=== PATIENT | male | born 1975 | race Caucasian/White ===

== ENCOUNTER → 2017-07-05 | Outpatient (CLI) | payer BC ==
--- NOTE | 2017-07-06 09:58 | CT ---
EXAMINATION TYPE: CT abdomen pelvis wo/w con DATE OF EXAM: 07/05/2017 COMPARISON: NONE INDICATION: Microscopic hematuria without pain. DLP: 3132.8 mGycm, Automated exposure control for dose reduction was used. CONTRAST: 100 mL of Omnipaque 300. Study performed with Oral Contrast TECHNIQUE: Axial images were obtained from above the diaphragm to the pubic rami in the axial plane a t 5 mm thick sections. Reconstructed images are reviewed on the computer in the coronal plane. FINDINGS: Limited CT sections are obtained the lung bases. The lung bases are clear. CT ABDOMEN: Liver: Normal Spleen: Normal Pancreas: Normal Adrenal glands: The adrenal glands are normal. Gallbladder: Normal Kidneys: Left kidney is atrophic. Scattered punctate calcifications are within the left kidney. There is a larger calcification at the inferior pole left kidney measuring 0.5 cm. No hydronephrosis or hy droureter is evident. No ureteral stones are evident. No masses are evident. No hydronephrosis is pre sent. There is a 2.5 cm cyst on the posterior mid right kidney. This measures 28 Hounsfield units D elayed images were obtained through the kidneys. Aorta: Mild Vascular calcification is within the aorta. Inferior vena cava: Normal. CT PELVIS: Loops of bowel within the abdomen and pelvis are normal. There are loops of bowel which are incom pletely distended or lack oral contrast limiting their evaluation. Appendix: Normal as visualized. Urinary bladder: Normal. No bladder calcifications are evident. Genitourinary structures: Prostate is normal. Punctate calcification is within the mid prostate most likely prostate calcification, tiny urethral stone is not excluded. Series 6 image 92, series 3 image 153 Osseous structures: No suspicious lytic or sclerotic lesions. IMPRESSIONS: 1. Tiny urethral stone at the level of the prostate is not excluded. Prostate calcification is more probable within the differential. 2. Right renal cyst. Consider additional evaluation with ultrasound for this 28 Hounsfield unit cyst. 3. Atrophic left kidney
== END | disposition home or self-care (01) ==
LOC: RADCTMAIN 17:48
PROVIDERS: ATTEND Internal Medicine
DX: N28.1 Cyst of kidney, acquired (principal); N26.1 Atrophy of kidney (terminal)
CPT/HCPCS: 74178; Q9967

== ENCOUNTER → 2017-07-13 | Outpatient (CLI) | payer BC ==
--- NOTE | 2017-07-14 08:28 | US ---
EXAMINATION TYPE: US kidneys/renal and bladder DATE OF EXAM: 07/13/2017 COMPARISON: CT CLINICAL HISTORY: R93.8 Abnormal Finding on imaging. Abnormal CT EXAM MEASUREMENTS: Right Kidney: 14.5 x 6.2 x 7.5 cm Left Kidney: 6.2 x 4.2 x 3.4 cm Right Kidney: Anechoic, avascular upper pole lesion = 2.6 x 2.2 x 2.8 cm, No evidence of hydro Left Kidney: Atrophic as seen on CT with 8mm calcification Bladder: wnl Bilateral Jets seen: Only right jet visualized There is no evidence for hydronephrosis at this point in time. The urinary bladder is anechoic. Bi lateral ureteral jets are seen. IMPRESSION: 1. Right upper pole renal lesion appears sonographically as a simple renal cyst, benign. 2. Left renal atrophy and 8 mm nonobstructing calculus.
== END | disposition home or self-care (01) ==
LOC: RADUSWWP 16:10
PROVIDERS: ATTEND Internal Medicine
DX: N20.0 Calculus of kidney (principal); N28.89 Other specified disorders of kidney and ureter; N26.1 Atrophy of kidney (terminal)
CPT/HCPCS: 76770

== ENCOUNTER → 2019-08-16 | Outpatient (CLI) | payer BC ==
--- NOTE | 2019-08-16 11:34 | CONS ---
CONSULTATION DATE OF SERVICE: 08/16/2019. A 43-year-old gentleman has been evaluated in sleep center for possible obstructive sleep apnea-hypopnea syndrome. HISTORY OF PRESENT ILLNESS/SLEEP-WAKE EVALUATION: Patient's usual sleep schedule on working days from 10:30 to 11 p.m. until 5 a.m.; on weekend from about 10:30 p.m. until 7 to 8 a.m. Usually no problems with falling asleep, although he has TV in bedroom. He sleeps in different positions. He snores usually when he had a difficult day, wakes up once with nocturia. Sometimes he opens his mouth during the sleep. May feel dry mouth when wake up. During the day, may feel sleepiness. [place] Sleepiness Scale is 6. No history of hypnagogic hallucinations, sleep paralysis or cataplexy. PAST MEDICAL HISTORY: Positive for hypertension, hyperlipidemia, episodes of muscle pains. PAST SURGICAL HISTORY: None. MEDICATIONS: Pravastatin, hydrochlorothiazide, amlodipine, ibuprofen. SOCIAL HISTORY: Negative for smoking. Alcohol consumption. Quit using alcohol about 5 years ago. FAMILY HISTORY: Hypertension, hyperlipidemia, diabetes. PHYSICAL EXAMINATION: During physical exam, gentleman without distress. VITAL SIGNS: BP 124/79, HR about 100, RR 15. Height 5 feet and 7 inches. Weight 242, body mass index 37.9. Temperature 97.1. Oxygen saturation at room air 96%. HEENT: PERRLA, EOMI. Oropharynx extremely low position of soft palate. Mallampati 4. Some restriction of nasal breathing. NECK: Wide neck, 17 inches in circumference. LUNGS: Clear to percussion and to auscultation. Good air exchange. No wheezing or rhonchi. HEART: S1, S2 regular. No murmurs, gallops, or rubs. ABDOMEN: Obese. EXTREMITIES: No clubbing or cyanosis. AUDIOLOGY TECHNICIAN: Awake, alert, and oriented X3. Cranial nerves 2 to 7 intact. There is no fasciculation or atrophy. noted. No focal deficits observed. IMPRESSION: 1. Snoring, awakenings from sleep with dry mouth and nocturia, extremely low position of soft palate, Mallampati 4, wide neck, obstructive sleep apnea-hypopnea syndrome. 2. Obesity, body mass index 37.9. 3. Hypertension. 4. 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 5. Episodes of muscle pain. 6. 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 PLAN: 1. Polysomnography for evaluation of patient's breathing during sleep. 2. CPAP/BiPAP titration if sleep study confirms obstructive sleep apnea-hypopnea syndrome. 3. Preferable position during sleep on the side. 4. No driving if patient feels any sleepiness. 5. I will see patient for follow up visit to explain results of testing and following plan. Thank you very much for referring this patient for consultation. Sincerely, Abelardo Hummel MD, PhD, FAASM Diplomat of [place] Board [employer] Medical Specialties [place] Board of Internal Medicine Manager Of Security of [facility] [place] MMODL / IJN: [id number] /
== END | disposition home or self-care (01) ==
LOC: SLEEP 10:00
PROVIDERS: ATTEND Internal Medicine
DX: G47.33 Obstructive sleep apnea (adult) (pediatric) (principal); E66.9 Obesity, unspecified; I10 Essential (primary) hypertension; E78.5 Hyperlipidemia, unspecified; M79.10 Myalgia, unspecified site; R35.1 Nocturia; Z68.37 Body mass index [BMI] 37.0-37.9, adult; Z79.1 Long term (current) use of non-steroidal anti-inflammatories (NSAID); Z79.899 Other long term (current) drug therapy
CPT/HCPCS: 99211

== ENCOUNTER → 2020-01-18 | Outpatient (CLI) | payer BC ==
--- NOTE | 2020-01-19 04:18 | SFUN ---
SLEEP CENTER FOLLOW UP NOTE DATE OF SERVICE: 01/18/2020 This 44-year-old gentleman had been followed in Sleep Center for treatment of obstructive sleep apnea-hypopnea syndrome. Recently patient had home sleep apnea test which showed severe sleep apnea with apnea-hypopnea index 54.2, and oxygen desaturation to 80%. I discussed results of the sleep study with patient in details. Subsequently, he was started on treatment with CPAP. Today is his first visit after he started to use equipment. I checked CPAP unit. Range of the pressure 5 to16, average pressure 10.1. Usage 25 out of 30 nights for more than 4 hours with average usage 5.3 hours per night. Leak is 43 L/minute, which is slightly high, but apnea-hypopnea index is perfect 0.8. [place] Sleepiness Scale today is 4. MEDICATIONS: Pravastatin, hydrochlorothiazide, amlodipine, ibuprofen. PHYSICAL EXAMINATION: GENERAL: Patient in no distress. VITAL SIGNS: BP 117/64, HR 92, RR 16, weight 243, temperature 98.1, oxygen saturation at room air 97%. HEENT: PERRLA, EOMI. Oropharynx extremely low position of soft palate. Mallampati 4. NECK: Supple, no JVD. Thyroid is not palpable. LUNGS: Clear to percussion and to auscultation. Good air exchange. No wheezing or rhonchi. HEART: S1, S2 regular. No murmurs, gallops, or rubs. ABDOMEN: Obese. EXTREMITIES: No clubbing or cyanosis. AUTOMOTIVE PARTS PERSON: Awake, alert, and oriented X3. Cranial nerves 2 to 7 intact. There is no fasciculation or atrophy. noted. No focal deficits observed. IMPRESSION: 1. Severe obstructive sleep apnea-hypopnea syndrome; apnea-hypopnea index 54.2 with oxygen desaturation to 80% on control with Auto PAP. Patient demonstrated good compliance with treatment, benefitting from treatment, slightly high leak from the mask. 2. Obesity. 3. Hypertension. 4. 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 5. Episodes of muscle pain. 6. 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 PLAN: 1. Patient will continue to use PAP equipment every night for the whole night. 2. Sleep hygiene with regular time in bed for at least 7-1/2 to 8 hours. Precautions related to driving. No driving if feeling sleepiness. 3. I will maintain all necessary prescription for PAP supplies including mask, tube, filters. 4. Watching weight. 5. No driving if feeling sleepiness. 6. Follow-up visit in 6 months or earlier if patient has any problems. Thank you very much for allowing me to participate in management of your patient. Sincerely, Abelardo Hummel MD, PhD, FAASM Diplomat of [place] Board of Medical Specialties [place] Board of Internal Medicine Spa Consultant of [facility] [place] MMODL / CADEN: [id number] /
== END | disposition home or self-care (01) ==
LOC: SLEEP 16:39
PROVIDERS: ATTEND Internal Medicine
DX: G47.33 Obstructive sleep apnea (adult) (pediatric) (principal); E66.9 Obesity, unspecified; I10 Essential (primary) hypertension; E78.5 Hyperlipidemia, unspecified; Z99.89 Dependence on other enabling machines and devices

== ENCOUNTER → 2020-07-31 | Outpatient (CLI) | payer BC ==
--- NOTE | 2020-08-01 06:34 | SFUN ---
SLEEP CENTER FOLLOW UP NOTE DATE OF SERVICE: 07/31/2020 HISTORY OF PRESENT ILLNESS: A 44-year-old gentleman who has been followed in Sleep Center for treatment of obstructive sleep apnea-hypopnea syndrome. Patient continues to use equipment every night and according to him he sleeps well with that. He does not snore. [place] Sleepiness Scale is 4. I checked his CPAP unit. Range of the pressure 5-16, average pressure 9.8, usage for the last month 27/30 nights for more than 4 hours with average usage 5.5 hours. I checked usage for the last 6 months and it is 169/180 nights. Leak is quite high at 38 L/minute. Apnea-hypopnea index only 1.0, which is absolutely normal. The patient did not start to use his new mask since using CPAP for the last 6 months. MEDICATIONS: Hydrochlorothiazide 25 mg once a day, amlodipine 5 mg once a day. Pravastatin 10 mg once a day. PHYSICAL EXAMINATION: GENERAL: A pleasant patient without any distress. VITAL SIGNS: BP 123/84 , HR 99 , RR 12, height 5' 7 1/2", weight 252.6 pounds, temperature 98.3, oxygen saturation at room air 96%. HEENT: PERRLA, EOMI, evaluation of oropharynx showed tongue protrudes midline. Extremely low position of soft palate, Mallampati IV. NECK: Supple, no JVD. Thyroid is not palpable. LUNGS: Clear to percussion and to auscultation. Good air exchange. No wheezing or rhonchi. HEART: S1, S2 regular. No murmurs, gallops, or rubs. ABDOMEN: Soft and nontender. Bowel sounds are present. No organomegaly appreciated. Obese. EXTREMITIES: No clubbing or cyanosis. MINE SURVEYOR: Awake, alert, and oriented X3. Cranial nerves 2 to 7 intact. There is no fasciculation or atrophy. noted. No focal deficits observed. IMPRESSION: 1. Severe obstructive sleep apnea-hypopnea syndrome. Apnea-hypopnea index of 54.2, on full control with CPAP. The patient demonstrated good compliance with treatment benefitting from treatment. 2. Obesity. 3. Hypertension. 4. 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 5. Episodes of muscle pain. 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 PLAN: PLAN 1. Patient will continue to use PAP equipment every night for the whole night. 2. Sleep hygiene with regular time in bed for at least 7-1/2 to 8 hours. 3. Precautions related to driving. No driving if feeling sleepiness. 4. I will maintain all necessary prescription for PAP supplies including mask, tube, filters. 5. Watching weight. 6. No driving if feeling sleepiness. 7. Follow-up visit in 6 months or earlier if patient has any problems. The patient should start to use new mask, which he already received. Thank you very much for allowing me to participate in the management of your patient. Sincerely, Abelardo Hmumel MD, PhD, FAASM Diplomat of [place] Board of Medical Specialties [place] Board of Internal Medicine Aws Software Development Engineer of [facility] [place] MMODL / CADEN: [id number] /
== END | disposition home or self-care (01) ==
LOC: SLEEP 16:32
PROVIDERS: ATTEND Internal Medicine
DX: G47.33 Obstructive sleep apnea (adult) (pediatric) (principal); E66.9 Obesity, unspecified; I10 Essential (primary) hypertension; E78.5 Hyperlipidemia, unspecified; M79.10 Myalgia, unspecified site; Z99.89 Dependence on other enabling machines and devices; Z79.899 Other long term (current) drug therapy

== ENCOUNTER → 2021-03-05 | Outpatient (CLI) | payer BC ==
--- NOTE | 2021-03-05 19:07 | SFUN ---
SLEEP CENTER FOLLOW UP NOTE DATE OF SERVICE: 03/05/2021 This 45-year-old gentleman has been followed in Sleep Center for treatment of obstructive sleep apnea-hypopnea syndrome. Patient continues to use CPAP equipment every night for the whole night and is getting his supplies on time. No sleepiness during the day. [place] Sleepiness Scale today is 5, which is in normal range. I checked his CPAP unit. Range of the pressure is 5-15, average pressure 10.5 cm of water. Usage is 30/30 nights, and 28/30 nights for more than 4 hours, with average usage 6 hours per night. For the last 6 months the patient used the machine 174/180 nights, and practically all nights more than 4 hours. Leak is 21 L/minute, which is borderline. Apnea-hypopnea index is 0.7, which is totally perfect. MEDICATIONS: 1. Lisinopril 2.5 mg once a day. 2. Hydrochlorothiazide 25 mg once a day. 3. Pravastatin 40 mg once a day. 4. Ibuprofen 800 mg up to 3 times a day. 5. Metformin 500 mg once a day. 6. Amlodipine 5 mg once a day. PHYSICAL EXAMINATION: GENERAL: Pleasant patient in no distress. VITAL SIGNS: BP 99/66, HR 92, RR 15, height 5 feet 7-1/2 inches, weight 254 pounds, 2 pounds more than during the last visit. Body mass index 39. Temperature 98.2. Oxygen saturation at room air 96%. HEENT: PERRLA, EOMI, evaluation of oropharynx showed tongue protrudes midline. Extremely low position of soft palate; Mallampati IV. NECK: Supple, no JVD. Thyroid is not palpable. LUNGS: Clear to percussion and to auscultation. Good air exchange. No wheezing or rhonchi. HEART: S1, S2 regular. No murmurs, gallops, or rubs. ABDOMEN: Obese. EXTREMITIES: No clubbing or cyanosis. STRETCHER HELPER: Awake, alert, and oriented X3. Cranial nerves 2 to 7 intact. There is no fasciculation or atrophy. noted. No focal deficits observed. IMPRESSION: 1. Severe obstructive sleep apnea-hypopnea syndrome. Original apnea-hypopnea index 54.2. The patient demonstrated practically 100% compliance with treatment, benefitting from treatment. Apnea-hypopnea index on the therapy only 0.7. No symptoms of excessive daytime sleepiness by [place] Sleepiness Scale. 2. Obesity. 3. Hypertension. 4. 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 PLAN: 1. Patient will continue to use PAP equipment every night for the whole night. 2. Sleep hygiene with regular time in bed for at least 7-1/2 to 8 hours. 3. Precautions related to driving. No driving if feeling sleepiness. 4. I will maintain all necessary prescription for PAP supplies including mask, tube, filters. 5. Watching weight. 6. Follow-up visit in 6 months or earlier if patient has any problems. Thank you very much for allowing me to participate in the management of your patient. Sincerely, Abelardo Hummel MD, PhD, FAASM Diplomat of [place] Board of Medical Specialties Sleep Medicine Board of [place] Board of Internal Medicine Senior Solutions Consultant of [facility] [place] CHRISTIAN / ELAINE: [id number] /
== END ==
LOC: SLEEP 14:56
PROVIDERS: ATTEND Internal Medicine
DX: G47.33 Obstructive sleep apnea (adult) (pediatric) (principal); E66.9 Obesity, unspecified; I10 Essential (primary) hypertension; E78.5 Hyperlipidemia, unspecified; Z99.89 Dependence on other enabling machines and devices; Z68.39 Body mass index [BMI] 39.0-39.9, adult; Z79.899 Other long term (current) drug therapy

== ENCOUNTER → 2021-09-10 | Outpatient (CLI) | payer BC ==
--- NOTE | 2021-09-10 19:00 | SFUN ---
SLEEP CENTER FOLLOW UP NOTE DATE OF SERVICE: 09/10/2021 This 46-year-old gentleman has been followed in Sleep Center for treatment of obstructive sleep apnea-hypopnea syndrome. The patient continues to use CPAP equipment every night, getting his supplies on time. [place] Sleepiness Scale is 6, which is normal. I checked his CPAP unit. It is in automatic regimen. Range of the pressure is 5 to 16, average pressure 9.9 cm of water. Usage is 29/30 nights for more than 4 hours, average 6.5 hours per night. Leak is 31 L/minute, which is borderline. Apnea-hypopnea index is 0.8, which is absolutely perfect. MEDICATIONS: 1. Pravastatin 40 mg once a day. 2. Metformin 500 mg once a day. 3. Lisinopril 25 mg once a day. 4. Amlodipine 5 mg once a day. 5. Hydrochlorothiazide 25 mg once a day. PHYSICAL EXAMINATION: GENERAL: Pleasant patient in no distress. VITAL SIGNS: BP 112/61, HR around 100, RR 16, weight 259 pounds. The patient's weight increased by 5 pounds compared to his previous visit. Height 5 feet 7-1/2 inches, temperature 97.5, oxygen saturation at room air 96%. HEENT: PERRLA, EOMI, evaluation of oropharynx showed tongue protrudes midline. Extremely low position of soft palate; Mallampati IV. NECK: Supple, no JVD. Thyroid is not palpable. LUNGS: Clear to percussion and to auscultation. Good air exchange. No wheezing or rhonchi. HEART: S1, S2 regular. No murmurs, gallops, or rubs. ABDOMEN: Obese. EXTREMITIES: No clubbing or cyanosis. WIDE AREA NETWORK SYSTEMS ADMINISTRATOR: Awake, alert, and oriented X3. Cranial nerves 2 to 7 intact. There is no fasciculation or atrophy. noted. No focal deficits observed. IMPRESSION: 1. Severe obstructive sleep apnea-hypopnea syndrome; apnea-hypopnea index 54.2. The patient demonstrated practically 100% compliance with treatment, benefitting from treatment. Normal respiration on CPAP. Apnea-hypopnea index 0.8. No symptoms of excessive daytime sleepiness by [place] Sleepiness Scale. 2. Obesity. 3. Hypertension. 4. 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 PLAN: 1. To replace air filter at least once a month. 2. Patient will continue to use PAP equipment every night for the whole night. 3. Sleep hygiene with regular time in bed for at least 7-1/2 to 8 hours. 4. Precautions related to driving. No driving if feeling sleepiness. 5. I will maintain all necessary prescription for PAP supplies including mask, tube, filters. 6. Watching weight. 7. Follow-up visit in 6 months or earlier if patient has any problems. Thank you very much for allowing me to participate in the management of your patient. Sincerely, Abelardo Hummel MD, PhD, FAASM Diplomat of [place] Board of Medical Specialties Sleep Medicine Board of [place] Board of Internal Medicine Flat Screen Worker of [facility] [place] MMODL / CADEN: [id number] /
== END ==
LOC: SLEEP 13:12
PROVIDERS: ATTEND Internal Medicine
DX: G47.33 Obstructive sleep apnea (adult) (pediatric) (principal); Z99.89 Dependence on other enabling machines and devices; E66.9 Obesity, unspecified; I10 Essential (primary) hypertension; E78.5 Hyperlipidemia, unspecified

== ENCOUNTER → 2022-03-04 | Outpatient (CLI) | payer BC ==
--- NOTE | 2022-03-04 16:46 | P.PN ---
Subjective DATE: 03/04/2022 FOLLOW UP VISIT. Patient with obstructive sleep apnea hypopnea syndrome return to sleep center for follow-up visit. Information from previous visit have been reviewed. Patient patient continued to use his CPAP equipment but the stoplight about 1- 1/2 months ago because he feels that he sleeps better . The patient does not have significant problems with the mask, PAP unit and humidification. [place] sleepiness scale is 2. I checked information from PAP unit. PAP unit pressure 5-16 cm, average 10 cm of H2O. Follow us 90 days patient uses at 44 nights .Usage is around 50 % for more then 4 hours, average 5.7 hours per night. Leak is 34 l/m, which is in acceptable range. Apnea Hypopnea Index is 0.5, which is normal. MEDICATIONS:1. Metformin 500 mg once a day 2. Pravastatin 40 mg once a day 3. Hydrochlorothiazide 25 mg once a day 4. Lisinopril 2.5 mg once a day 5. Amlodipine 5 mg once a day 6. Allopurinol 100 mg once a day 7. Ibuprofen 800 mg as needed During physical exam: GENERAL: A pleasant patient without any distress. VITAL SIGNS: BP 109/72, HR 106, RR 16 , weight 255, temperature 97.9, oxygen saturation at room air 98 % , height 5 foot and 7-1/2 inches, body mass index 39.3. HEENT: PERRLA, EOMI.low position of soft palate, Mallapati for . NECK: Supple. No JVD. LUNGS: Clear to percussion and to auscultation. Good air exchange. No wheezing or rhonchi. HEART: S1, S2 regular. ABDOMEN: Soft and nontender. Obese EXTREMITIES: No clubbing or cyanosis. SPRAY DRIER OPERATOR: Awake, alert, and oriented x3. No focal deficit. Impressions: 1. Obstructive sleep apnea-hypopnea syndrome. Patient patient stopped using CPAP equipment about 1-1/2 months ago, feels that he sleeps better now. During previous sleep study severe sleep apnea with apnea-hypopnea index 54.2.. 2. Hypertension. 3. Obesity. 4. 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 Plan: 1. Continue using PAP equipment every night for the whole night. 2. Home sleep apnea test for evaluation of patient breathing during sleep with the present time, because patient believes that she is breathing now is better than before 3. Follow-up visit for results of home sleep test 4. Sleep hygiene with regular time in bed for at least 8 hours. 5. Precautions related to driving. No driving if feel any sleepiness. Patient is aware about civil and criminal liability for unsafe driving 6. Watching and losing weight. Thank you very much for allowing me to participate in the management of your patient. Abelardo Hummel MD, PhD, FAASM. Diplomat of [place] Board of Sleep Medicine, Sleep Medicine Board by [place] Board of Internal Medicine Turret Lathe Tender of [facility] [place]
== END ==
LOC: SLEEP 16:13
PROVIDERS: ATTEND Internal Medicine
DX: G47.33 Obstructive sleep apnea (adult) (pediatric) (principal); Z99.89 Dependence on other enabling machines and devices; I10 Essential (primary) hypertension; E66.9 Obesity, unspecified; E78.5 Hyperlipidemia, unspecified; Z68.39 Body mass index [BMI] 39.0-39.9, adult; Z79.899 Other long term (current) drug therapy

== ENCOUNTER → 2022-07-01 | Outpatient (CLI) | payer BC ==
--- NOTE | 2022-07-01 16:13 | P.PN ---
Subjective DATE: 07/01/2022 FOLLOW UP VISIT. Patient with obstructive sleep apnea hypopnea syndrome return to sleep center for follow-up visit. Information from previous visit have been reviewed. I explained to the patient results of previous sleep studies which included home sleep apnea test and titration home sleep apnea test again confirmed obstructive sleep apnea hypopnea syndrome with apnea-hypopnea index 24.7 with significant oxygen desaturation. Patient is using PAP equipment every night for the whole night, getting PAP supplies in time. The patient does not have significant problems with the mask, PAP unit and humidification. [place] sleepiness scale is 3, which is normal. I checked information from PAP unit. PAP unit pressure 5-12, average 8.1 cm H2O. Usage is 80% and about 72% for more then 4 hours, average 5.5 hours per night. Leak is 26.1 l/m, which is in acceptable range. Apnea Hypopnea Index is 0.4, which is normal. MEDICATIONS:1. Metformin 500 mg once a day 2. Lisinopril 25 mg once a day 3. Amlodipine 5 mg once a day 4. Hydrochlorothiazide 25 mg once a day 5. Pravastatin 40 mg once a day During physical exam: GENERAL: A pleasant patient without any distress. VITAL SIGNS: BP 117/85, HR 96, RR 14 , weight 250, temperature 97.2, oxygen saturation at room air 97 % . HEENT: PERRLA, EOMI.low position of soft palate, Mallapati 4 . NECK: Supple. No JVD. LUNGS: Clear to percussion and to auscultation. Good air exchange. No wheezing or rhonchi. HEART: S1, S2 regular. ABDOMEN: Soft and nontender. Slightly obese EXTREMITIES: No clubbing or cyanosis. MANUFACTURING FINANCE MANAGER: Awake, alert, and oriented x3. No focal deficit. Impressions: 1. Obstructive sleep apnea-hypopnea syndrome. Patient demonstrated good compliance with treatment, benefiting from treatment. 2. Hypertension. 3. 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 4. Obesity. 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 Plan: 1. Continue using PAP equipment every night for the whole night. 2. To change air filter at least 1-2 times per month. 3. PAP unit should stay lower then position of the head. 4. Advised patient to remove all remaining water from humidifier canister daily and make it dry after each usage. Refill canister with fresh distilled water before each usage. 5. Sleep hygiene with regular time in bed for at least 8 hours. 6. Precautions related to driving. No driving if feel any sleepiness. 7. I will maintain prescription for PAP supplies including mask, tube, filters. 8. Follow up visit in 6 months or earlier if patient has any problems. 9. Watching and losing weight. Thank you very much for allowing me to participate in the management of your patient. Abelardo Hummel MD, PhD, FAASM. Diplomat of [place] Board of Sleep Medicine, Sleep Medicine Board by [place] Board of Internal Medicine Outbound Supervisor of [facility] [place]
== END ==
LOC: SLEEP 15:35
PROVIDERS: ATTEND Internal Medicine
DX: G47.33 Obstructive sleep apnea (adult) (pediatric) (principal); I10 Essential (primary) hypertension; E78.5 Hyperlipidemia, unspecified; E66.9 Obesity, unspecified; Z79.899 Other long term (current) drug therapy
CPT/HCPCS: 99212

== ENCOUNTER → 2022-11-07 | Outpatient (CLI) | payer BC ==
[2022-11-07 13:44] LABS: Basophils # (A) 0.07 X 10*3/uL (0.00-0.10); Basophils % (A) 0.7 %; Eosinophils # (A) 0.14 X 10*3/uL (0.04-0.35); Eosinophils % (A) 1.4 %; HCT 48.4 % (39.6-50.0); HGB 15.4 g/dL (13.0-17.0); Immature Grans, Automated 0.5 %; Lymphocytes # (A) 2.94 X 10*3/uL (0.90-5.00); Lymphocytes % (A) 30.2 %; MCH 25.8 pg (27.0-32.0); MCHC 31.8 g/dL (32.0-37.0); MCV 81.2 fL (80.0-97.0); Mean Platelet Volume 11.9 fL (9.5-12.2); Monocytes # (A) 0.73 X 10*3/uL (0.20-1.00); Monocytes % (A) 7.5 %; NRBC Per 100 WBC 0 /100 WBCS (0.0-0.0); Neutrophils # (A) 5.81 X 10*3/uL (1.80-7.70); Neutrophils % (A) 59.7 %; Platelet Count 223 X 10*3/uL (140-440); RBC 5.96 X 10*6/uL (4.40-5.60); RDW 14.7 % (11.5-14.5); WBC 9.74 X 10*3/uL (4.50-10.00)
[2022-11-07 13:51] LABS: ALT 36 U/L (10-49); AST 22 U/L (14-35); African American GFR (CKD) 104.4 (60.0-200.0); Albumin/Globulin Ratio 1.37 (1.60-3.17); Alkaline Phosphatase 74 U/L (41-126); BUN/Creat Ratio 19.76 Ratio (12.00-20.00); Blood Urea Nitrogen 19.6 mg/dL (9.0-27.0); Chloride 105 mmol/L (96-109); Chol/HDL Ratio 5.18 Ratio; Globulin 2.9 g/dL (1.6-3.3); Glucose 91 mg/dL (70-110); LDL Cholesterol,Calculated 86.3 mg/dL (0.0-131.0); Non-African American GFR(CKD) 90.1 (60.0-200.0); Potassium 4.1 mmol/L (3.5-5.5); Sodium 141 mmol/L (135-145); Uric Acid 9.3 mg/dL (3.7-8.7)
== END | disposition home or self-care (01) ==
LOC: LABWHC1 07:59
PROVIDERS: ATTEND Nurse Practitioner Family
DX: E11.9 Type 2 diabetes mellitus without complications (principal); M10.9 Gout, unspecified
CPT/HCPCS: 36415; 80053; 80061; 83036; 84443; 84550; 85025

== ENCOUNTER → 2023-01-28 | Outpatient (CLI) | payer BC ==
--- NOTE | 2023-01-28 17:09 | P.PN ---
Subjective DATE: 01/28/2023 FOLLOW UP VISIT. Patient with obstructive sleep apnea hypopnea syndrome return to sleep center for follow-up visit. Information from previous visit have been reviewed. Patient is using PAP equipment every night for the whole night, getting PAP supplies in time. The patient does not have significant problems with the mask, PAP unit and humidification. [place] sleepiness scale is 4. I checked information from PAP unit. PAP unit pressure 5-12, average 9.5 cm H2O. Usage is 100 % for more then 4 hours, average 6 hours per night. Leak is 27.8 l/m, which is in acceptable range. Apnea Hypopnea Index is 0.4, which is normal. MEDICATIONS:1. Hydrochlorothiazide 25 mg once a day 2. Metformin 500 mg twice a day 3. Amlodipine 5 mg once a day 4. Pravastatin 40 mg once a day 5. Lisinopril 2.5 mg once a day 6. Allopurinol 100 mg twice a day 7. Ibuprofen 800 mg as needed During physical exam: GENERAL: A pleasant patient without any distress. VITAL SIGNS: BP 94/63, HR 98, RR 16 , weight 256, temperature 97.7, oxygen saturation at room air 95 % . HEENT: PERRLA, EOMI.low position of soft palate, Mallapati 4 . NECK: Supple. No JVD. LUNGS: Clear to percussion and to auscultation. Good air exchange. No wheezing or rhonchi. HEART: S1, S2 regular. ABDOMEN: Soft and nontender. Obese EXTREMITIES: No clubbing or cyanosis. REPLENISHMENT BUYER: Awake, alert, and oriented x3. No focal deficit. Impressions: 1. Obstructive sleep apnea-hypopnea syndrome. Patient demonstrated great compliance with treatment, benefiting from treatment. 2. Obesity, body mass index 40, patient increased his weight on 6 pounds comparing with previous visit. 3. Hypertension. 4. 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 Plan: 1. Continue using PAP equipment every night for the whole night. 2. To change air filter at least 1-2 times per month. 3. PAP unit should stay lower then position of the head. 4. Advised patient to remove all remaining water from humidifier canister daily and make it dry after each usage. Refill canister with fresh distilled water before each usage. 5. Sleep hygiene with regular time in bed for at least 8 hours. 6. Precautions related to driving. No driving if feel any sleepiness. 7. I will maintain prescription for PAP supplies including mask, tube, filters. 8. Watching and losing weight. 9. Follow up visit in 6 months or earlier if patient has any problems. Thank you very much for allowing me to participate in the management of your patient. Abelardo Hummel MD, PhD, FAASM. Diplomat of [place] [employer], Sleep Medicine Board by [place] [employer] Exchange Mechanic of [facility] [place]
== END ==
LOC: 3 N SLEEP 16:20
PROVIDERS: ATTEND Internal Medicine
DX: G47.33 Obstructive sleep apnea (adult) (pediatric) (principal); Z68.41 Body mass index [BMI] 40.0-44.9, adult; E66.9 Obesity, unspecified; E78.5 Hyperlipidemia, unspecified; I10 Essential (primary) hypertension; Z79.84 Long term (current) use of oral hypoglycemic drugs; Z79.899 Other long term (current) drug therapy; Z99.89 Dependence on other enabling machines and devices
CPT/HCPCS: 99212

== ENCOUNTER → 2023-08-05 | Outpatient (CLI) | payer BC ==
--- NOTE | 2023-08-05 14:51 | P.PN ---
Subjective DATE: 02/15/2024 FOLLOW UP VISIT. Patient with obstructive sleep apnea hypopnea syndrome return to sleep center for follow-up visit. Information from previous visit have been reviewed. Patient is using PAP equipment every night for the whole night, getting PAP supplies in time. The patient does not have significant problems with the mask, PAP unit and humidification. [place] sleepiness scale is 5. I checked information from PAP unit. PAP unit pressure 5-12, average 9.6 cm H2O. Usage is 100 % for more then 4 hours, average 7 hours per night. Leak is 18 l/m, which is in acceptable range. Apnea Hypopnea Index is 0.4, which is normal. MEDICATIONS:1. Hydrochlorothiazide 25 mg once a day 2. Metformin 500 mg twice a day 3. Pravastatin 40 mg once a day 4. Lisinopril 2.5 mg once a day 5. Amlodipine 5 mg once a day 6. Allopurinol 100 mg twice a day During physical exam: GENERAL: A pleasant patient without any distress. VITAL SIGNS: BP 125/82, HR 93, RR 18 , weight 274.8, temperature 97.9, oxygen saturation at room air 96 % . HEENT: PERRLA, EOMI.low position of soft palate, Mallapati 4 . NECK: Supple. No JVD. LUNGS: Clear to percussion and to auscultation. Good air exchange. No wheezing or rhonchi. HEART: S1, S2 regular. ABDOMEN: Soft and nontender.[] EXTREMITIES: No clubbing or cyanosis. INSURANCE SERVICE REPRESENTATIVE: Awake, alert, and oriented x3. No focal deficit. Impressions: 1. Obstructive sleep apnea-hypopnea syndrome. Patient demonstrated great compliance with treatment, benefiting from treatment. 2. Hypertension. 3. 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 4. Obesity, patient increased his weight on 18 pounds comparing with previous visit. 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 Plan: 1. Continue using PAP equipment every night for the whole night. 2. To change air filter at least 1-2 times per month. 3. PAP unit should stay lower then position of the head. 4. Advised patient to remove all remaining water from humidifier canister daily and make it dry after each usage. Refill canister with fresh distilled water before each usage. 5. Sleep hygiene with regular time in bed for at least 8 hours. 6. Precautions related to driving. No driving if feel any sleepiness. 7. I will maintain prescription for PAP supplies including mask, tube, filters. 8. Follow up visit in 6 months or earlier if patient has any problems. 9. Watching and losing weight. Thank you very much for allowing me to participate in the management of your patient. Abelardo Hummel MD, PhD, FAASM. Diplomat of [place] [employer], Sleep Medicine Board by [place] [employer] Capital Markets Specialist of [facility] [employer]
== END ==
LOC: 3 N SLEEP 13:38
PROVIDERS: ATTEND Internal Medicine
DX: G47.33 Obstructive sleep apnea (adult) (pediatric) (principal); I10 Essential (primary) hypertension; E78.5 Hyperlipidemia, unspecified; E66.9 Obesity, unspecified; Z79.84 Long term (current) use of oral hypoglycemic drugs; Z79.899 Other long term (current) drug therapy; Z99.89 Dependence on other enabling machines and devices
CPT/HCPCS: 99212

== ENCOUNTER → 2023-08-09 | Outpatient (CLI) | payer BC ==
--- NOTE | 2023-08-09 10:37 | XR ---
EXAMINATION TYPE: XR ankle complete LT DATE OF EXAM: 08/09/2023 COMPARISON: None HISTORY: Ankle pain TECHNIQUE: 3 view left ankle FINDINGS: The ankle mortise is intact. Soft tissues may have minimal prominence. Joint space appears preserved. No acute fractures or dislocations are evident. Follow up exams can be performed 7-10 days from acute trauma for continued pain. IMPRESSION: 1. No acute osseous abnormality radiographically apparent. 2. There may be some minimal diffuse soft tissue swelling present
--- NOTE | 2023-08-09 10:40 | XR ---
EXAMINATION TYPE: XR foot complete LT DATE OF EXAM: 08/09/2023 COMPARISON: None HISTORY: Pain in the heel TECHNIQUE: 3 view left foot FINDINGS: No acute fractures or dislocations are evident. Joint spaces are preserved. Soft tissues ap pear normal. Heel pad appears normal. No radiopaque foreign bodies are evident. Follow up exams can be performed 7-10 days from acute trauma for continued pain. IMPRESSION: 1. No acute osseous abnormality left foot.
== END | disposition home or self-care (01) ==
LOC: RADXRMAIN 10:00
PROVIDERS: ATTEND Internal Medicine Geriatric Medicine
DX: M25.572 Pain in left ankle and joints of left foot (principal); M25.672 Stiffness of left ankle, not elsewhere classified

== ENCOUNTER → 2024-03-15 | Outpatient (CLI) | payer BC ==
[2024-03-15 16:39] VITALS: BP 102/71; PULSE 104; RESP 16; TEMP 97.9
--- NOTE | 2024-03-15 16:59 | P.PROGSL ---
Subjective DATE: 03/15/2024 FOLLOW UP VISIT. Patient with obstructive sleep apnea hypopnea syndrome return to sleep center for follow-up visit. Information from previous visit have been reviewed. Patient is using PAP equipment every night for the whole night, getting PAP supplies in time. The patient does not have significant problems with the mask, PAP unit and humidification. [place] sleepiness scale is 3, which is normal. I checked information from PAP unit. PAP unit pressure 5-12, average 9.8 cm H2O. Usage is 100% for more then 4 hours, average 7 hours per night. Leak is 32 l/m, which is in acceptable range. Apnea Hypopnea Index is 0.6, which is normal. MEDICATIONS have been reviewed, please see below. During physical exam: GENERAL: A pleasant patient without any distress. VITAL SIGNS: Please see below, weight is 266 lbs. HEENT: PERRLA, EOMI.low position of soft palate, Mallapati 4 . NECK: Supple. No JVD. LUNGS: Clear to percussion and to auscultation. Good air exchange. No wheezing or rhonchi. HEART: S1, S2 regular. ABDOMEN: Soft and nontender. Obese EXTREMITIES: No clubbing or cyanosis. PERFORMANCE IMPROVEMENT CONSULTANT: Awake, alert, and oriented x3. No focal deficit. Impressions: 1. Obstructive sleep apnea-hypopnea syndrome. Patient demonstrated great compliance with treatment, benefiting from treatment. 2. Obesity, BMI 42.2, patient lost 8 pounds comparing with previous visit. 3. Hypertension. 4. 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 Continue using PAP equipment every night for the whole night. 2. Sleep hygiene with regular time in bed for at least 7.5-8 hours 3. PAP unit should stay lower then position of the head. 4. Advised patient to remove all remaining water from humidifier canister daily and make it dry after each usage. Refill canister with fresh distilled water before each usage. 5. Watching and losing weight. 6. Precautions related to driving. No driving if feel any sleepiness. 7. I will maintain prescription for PAP supplies including mask, tube, filters. 8. Follow up visit in 6 months or earlier if patient has any problems. Thank you very much for allowing me to participate in the management of your patient. Abelardo Hummel MD, PhD, FAASM. Diplomat of [place] [employer], Sleep Medicine Board by [place] [employer] Access Database Developer of [facility] [place] Objective - Vital Signs Vital Signs: Vital Signs Temp 97.9 F 03/15/24 16:38 Pulse 104 H 03/15/24 16:38 Resp 16 03/15/24 16:38 BP 102/71 03/15/24 16:38 Pulse Ox 97 03/15/24 16:38 FiO2 Intake & Output 03/14/24 03/15/24 03/15/24 18:59 06:59 18:59 Weight 120.656 kg Home Medications: Home Medications Medication Instructions Recorded Confirmed Type Ibuprofen [Motrin] 800 mg PO DIRECTED PRN 03/15/24 03/15/24 History Pravastatin Sodium [Pravachol] 40 mg PO DAILY 03/15/24 03/15/24 History allopurinoL 100 mg PO BID 03/15/24 03/15/24 History amLODIPine [Norvasc] 5 mg PO DAILY 03/15/24 03/15/24 History hydroCHLOROthiazide 25 mg PO DAILY 03/15/24 03/15/24 History lisinopriL 2.5 mg PO DAILY 03/15/24 03/15/24 History metFORMIN HCL 500 mg PO BID 03/15/24 03/15/24 History
== END ==
LOC: 3 N SLEEP 16:23
PROVIDERS: ATTEND Internal Medicine
CPT/HCPCS: 99212

== ENCOUNTER → 2024-11-16 | Outpatient (CLI) | payer BC ==
[2024-11-16 16:48] VITALS: BP 125/84; PULSE 97; RESP 16; TEMP 98
--- NOTE | 2024-11-16 16:56 | P.PROGSL ---
Subjective DATE: 11/16/2024 FOLLOW UP VISIT. Patient with obstructive sleep apnea hypopnea syndrome return to sleep center for follow-up visit. Information from previous visit have been reviewed. Patient is using PAP equipment every night for the whole night, getting PAP supplies in time. The patient does not have significant problems with the mask, PAP unit and humidification. [place] sleepiness scale is 4. I checked information from PAP unit. PAP unit pressure 5-12, average 10.1 cm H2O. Usage is 100% for more then 4 hours, average 7 hours per night. Leak is 6 l/m, which is in acceptable range. Apnea Hypopnea Index is 0.5, which is normal. MEDICATIONS have been reviewed, please see below. During physical exam: GENERAL: A pleasant patient without any distress. VITAL SIGNS: Please see below, weight is 273 lbs. HEENT: PERRLA, EOMI.low position of soft palate, Mallapati 4 . NECK: Supple. No JVD. LUNGS: Clear to percussion and to auscultation. Good air exchange. No wheezing or rhonchi. HEART: S1, S2 regular. ABDOMEN: Soft and nontender.[] EXTREMITIES: No clubbing or cyanosis. LIABILITY CLAIMS MANAGER: Awake, alert, and oriented x3. No focal deficit. Impressions: 1. Obstructive sleep apnea-hypopnea syndrome. Patient demonstrated great compliance with treatment, benefiting from treatment. 2. Obesity, BMI 44.1. 3. Hypertension. 4. 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 Plan: 1. Continue using PAP equipment every night for the whole night. 2. Sleep hygiene with regular time in bed for at least 7.5-8 hours 3. PAP unit should stay lower then position of the head. 4. Advised patient to remove all remaining water from humidifier canister daily and make it dry after each usage. Refill canister with fresh distilled water before each usage. 5. Watching and losing weight. 6. Precautions related to driving. No driving if feel any sleepiness. 7. I will maintain prescription for PAP supplies including mask, tube, filters. 8. Follow up visit in 8 months or earlier if patient has any problems. Thank you very much for allowing me to participate in the management of your patient. Abelardo Hummel MD, PhD, FAASM. Diplomat of [place] [employer], Sleep Medicine Board by [place] [employer] Marketing Research Analyst of [facility] [place] Objective - Vital Signs Vital Signs: Vital Signs Temp 98 F 11/16/24 16:47 Pulse 97 11/16/24 16:47 Resp 16 11/16/24 16:47 BP 125/84 11/16/24 16:47 Pulse Ox 95 11/16/24 16:47 FiO2 Intake & Output 11/15/24 11/16/24 11/16/24 18:59 06:59 18:59 Weight 123.831 kg Home Medications: Home Medications Medication Instructions Recorded Confirmed Type Ibuprofen [Motrin] 800 mg PO DIRECTED PRN 03/15/24 03/15/24 History Pravastatin Sodium [Pravachol] 40 mg PO DAILY 03/15/24 03/15/24 History allopurinoL 100 mg PO BID 03/15/24 03/15/24 History amLODIPine [Norvasc] 5 mg PO DAILY 03/15/24 03/15/24 History hydroCHLOROthiazide 25 mg PO DAILY 03/15/24 03/15/24 History lisinopriL 2.5 mg PO DAILY 03/15/24 03/15/24 History metFORMIN HCL 500 mg PO BID 03/15/24 03/15/24 History
== END ==
LOC: 3 N SLEEP 16:13
PROVIDERS: ATTEND Internal Medicine
DX: G47.33 Obstructive sleep apnea (adult) (pediatric) (principal); E66.9 Obesity, unspecified; I10 Essential (primary) hypertension; E78.5 Hyperlipidemia, unspecified; Z68.41 Body mass index [BMI] 40.0-44.9, adult; Z99.89 Dependence on other enabling machines and devices
CPT/HCPCS: 99212